=== PATIENT | male | born 1985 | race African-American/Black ===

== ENCOUNTER 2021-05-06 16:06 | Inpatient (IN) | payer OTHER ==
[~2021-05-06] VITALS: Ht 188 cm; Wt 99.8 kg
[2021-05-06] MEDS ORDERED: cloNIDine HCL 0.1 MG TAB PO ONE (16:15)
[2021-05-06 16:57] LABS: Basophils # (auto) 0 10 ^3/uL (0-0.2); Basophils % (auto) 0.4 % (0.0-2.0); Eosinophils # (auto) 0.1 10 ^3/uL (0-0.8); Eosinophils % (auto) 1.9 % (0.0-7.0); Hematocrit 42.5 % (41.0-53.0); Hemoglobin 14.6 g/dL (13.5-17.5); Lymphocytes # (auto) 2.5 10 ^3/uL (0.4-5.4); Lymphocytes % (auto) 33.7 % (10.0-50.0); Mean Corpuscular Hemoglobin 32.2 pg (28.0-32.0); Mean Corpuscular Hgb Conc. 34.5 g/dL (32.0-36.0); Mean Corpuscular Volume 93.2 fL (80.0-100.0); Monocytes # (auto) 0.5 10 ^3/uL (0-1.3); Neutrophils # (auto) 4.3 10 ^3/uL (1.6-8.6); Nucleated Red Blood Cells % 0.1 %; Red Blood Cells 4.55 10^6/uL (4.5-5.90); Red Cell Distribution Width 13.4 % (11.8-14.3); White Blood Cell 7.5 10^3/uL (4.4-10.8)
[2021-05-06 17:15] LABS: Albumin 3.5 g/dL (3.4-5.0); Calcium 8.7 mg/dL (8.5-10.1); Potassium 3.6 mmol/L (3.5-5.1)
[2021-05-06 17:28] LABS: BUN/Creatinine Ratio 18.2; Bilirubin, Total 0.3 mg/dL (0.2-1.0)
[2021-05-06] MEDS ORDERED: ASPirin 81 mg TAB PO ONE (18:30)
[2021-05-06] MEDS ORDERED: ONDANSETRON HCL 4 MG/2 ML VIAL IV PRN (18:30)
[2021-05-06] MEDS ORDERED: ACETAMINOPHEN 325 MG TAB PO PRN (18:30)
[2021-05-06] MEDS ORDERED: hydrALAZINE HCL 20 MG/ML VL IV ONE (18:45)
[2021-05-06 19:15] LABS: Urine WBC None Seen /hpf (0 - 3)
[2021-05-06 19:24] LABS: Urine Bacteria NONE SEEN /hpf (None Seen); Urine Blood Negative /uL (Negative); Urine Specific Gravity 1.005 (1.001-1.035)
[2021-05-06 19:27] VITALS: BP 155/94
[2021-05-06 19:39] LABS: Alcohol, Urine < 3.0 mg/dL (0-10); Amphetamine Screen, Urine NEGATIVE (NEGATIVE); Barbiturate Scree,Urine NEGATIVE (NEGATIVE); Benzodiazephine Screen, Urine NEGATIVE (NEGATIVE); Cannabinoid Screen, Urine POSITIVE (NEGATIVE); Cocaine Screen, Urine NEGATIVE (NEGATIVE); Opiate Scree,Urine NEGATIVE (NEGATIVE); Phencyclidine Screen, Urine NEGATIVE (NEGATIVE)
[2021-05-06] MEDS ORDERED: LORazepam 2MG/ML-1ML VIAL IV PRN (19:45)
[2021-05-06 20:07] LABS: Cholesterol 184 mg/dL (< 200); HDL Cholesterol 40 mg/dL (40-59); LDL Cholesterol 114 mg/dL (< 100); Triglycerides 237 mg/dL (< 150)
[2021-05-06] MEDS ORDERED: TEMAZEPAM 15 MG CAP PO PRN (22:00)
[2021-05-06] MEDS ORDERED: ATORVASTATIN 20 MG TAB PO SCH (22:00)
[2021-05-07] MEDS ORDERED: ASPirin 81 mg TAB PO SCH ×2 (10:00)
[2021-05-07] MEDS ORDERED: ENOXAPARIN SOD 40 MG/0.4 ML SYRINGE SC SCH (10:00)
[2021-05-07] MEDS ORDERED: LISINOPRIL 10 MG TAB PO SCH (10:00)
[2021-05-07] MEDS ORDERED: PANTOPRAZOLE 40 MG TAB PO SCH (10:00)
== END 2021-05-06 19:38 | disposition home or self-care (01) | DRG 45 ==
LOC: EDBD 16:06 → ER 16:06 → OVERFLOW 18:56
PROVIDERS: ADMIT Nurse Practitioner; ATTEND Nurse Practitioner
DX: I63.9 Cerebral infarction, unspecified (principal); G81.94 Hemiplegia, unspecified affecting left nondominant side; F17.210 Nicotine dependence, cigarettes, uncomplicated; I10 Essential (primary) hypertension; G47.10 Hypersomnia, unspecified; Z20.822 Contact with and (suspected) exposure to COVID-19; Z88.5 Allergy status to narcotic agent; Z80.9 Family history of malignant neoplasm, unspecified; Z72.89 Other problems related to lifestyle
CPT/HCPCS: 36415; 70450; 80053; 80061; 80307; 81001; 84484; 85025; 93005; 96374; G0378